=== PATIENT | male | born 1935 | race Caucasian/White ===

== ENCOUNTER → 2016-07-17 | Day surgery (SDC) | payer OTHER ==
[~2016-07-17] MED LIST: ACETAMINOPHEN/HYDROcodone 325 MG/5 MG TAB ONE; BUPIVACAINE/EPINEPHRINE 0.5% 50 ML VIAL ONE; LACTATED RINGER'S 1000 ML INJ 1,000 ML ONE; MIDAZOLAM HCL 2 MG/2 ML VIAL ONE; ONDANSETRON HCL 4 MG/2 ML VIAL IV PUSH ONE; PROPOFOL 200 MG/20 ML AMP IV ONE; ceFAZolin INJ 1,000 MG VIAL ONE
--- NOTE | 2016-07-17 14:59 | TN ---
cc: ABNER PAEZ DATE OF SURGERY: 07/17/2016 PREOPERATIVE DIAGNOSIS 1. Internal derangement of the right knee. 2. Probable medial meniscus tear right knee. POSTOPERATIVE DIAGNOSIS 1. Complex tear of the posterior and anterior medial meniscus. 2. Degenerative tear of the lateral meniscus. PROCEDURE 1. Arthroscopy right knee. 2. Arthroscopic medial and lateral meniscectomies. SURGEON Abner Paez ANESTHESIA General. ESTIMATED BLOOD LOSS Minimal. INDICATION This patient is an 81-year-old male with significant knee pain related to evidence of a tear of the medial meniscus. Despite conservative care the patient continued painful and symptomatic. He presents for surgical treatment. DETAILS OF PROCEDURE The patient presented to the operating room and was anesthetized in supine position. The right leg was scrubbed with alcohol followed by Hibiclens followed by ChloraPrep and draped sterilely. Antibiotics were given with a one hour time window and a timeout was done. After exsanguination the tourniquet was inflated to 250 mmHg. Inflow was established anterior and laterally. The suprapatellar pouch was inflated. There was minimal synovitis. There are grade I changes of the retropatellar region. There are no loose bodies in the medial or lateral gutters. The medial compartment showed evidence of a complex tear of the medial meniscus posteriorly extending from the posterior horn to approximately the 1 o'clock position. There was a separate anteromedial meniscus tear. In between the two tears the meniscus was very redundant. The ACL had a normal appearance to it. The lateral compartment showed a degenerative lateral meniscus tear. A separate spinal needle was used to approach the medial side. A separate incision was made. Straight and angled punches were used to take the meniscus back to a stable rim. The posterior portion of the meniscus was resected to the 2 o'clock position and a portion anteriorly was resected as well. On the lateral side there was a resection of the degenerative portion of the medial meniscus. The fragments were floated free from the joint. The wound was irrigated copiously. The portals were injected with 0.5% Marcaine with epinephrine. The portals were closed with Steri-Strips and benzoin. A sterile dressing was applied. The patient was awakened and taken to Recovery in satisfactory condition. Abner C. Gillespy, MD [facility]/LETICIA /2:39 PM /2:44 PM
== END | disposition home or self-care (01) ==
LOC: ESDC 12:27
PROVIDERS: ATTEND Orthopaedic Surgery Orthopaedic Surgery of the Spine
DX: S83.231A Complex tear of medial meniscus, current injury, right knee, initial encounter (principal); S83.282A Other tear of lateral meniscus, current injury, left knee, initial encounter
CPT/HCPCS: 01400; 29880; J0690; J2250; J2405; J3010; J7120